=== PATIENT | male | born 1980 | race Caucasian/White ===

== ENCOUNTER 2024-04-06 13:22 | Outpatient (CLI) | payer BC, SELFPAY | END 2024-04-06 13:23 | disposition home or self-care (01) | LOC: SLEEP 13:28 | PROVIDERS: Visit Provider Nurse Practitioner Family | DX: G47.33 Obstructive sleep apnea (adult) (pediatric) (principal); G47.36 Sleep related hypoventilation in conditions classified elsewhere | CPT/HCPCS: G0399 ==